=== PATIENT | female | born 1945 | race Caucasian/White ===

== ENCOUNTER 2023-05-19 13:04 | Outpatient (CLI) | payer MEDICARE, SELFPAY ==
[2023-05-19 09:38] LABS: HCT 41.6 % (36.0-46.0); HGB 13.8 g/dL (11.2-15.7); MCH 29.9 pg (27.0-33.0); MCHC 33.2 % (32.0-36.0); MCV 90 fL (80-95); MPV 10.9 fL (8.0-11.0); Platelet Count 218 10^3/uL (130-400); RBC 4.62 10^6/uL (3.93-5.22); RDW 13.1 % (11.7-14.6); RDW-SD 43.3 fL; WBC 5.72 10^3/uL (4.4-10.8)
[2023-05-19 10:01] LABS: Anion Gap 9.9 mmol/L (3-11); BUN 28 mg/dL (7-18); CO2 26.1 mmol/L (21.0-32.0); CREATININE 1.5 mg/dL (0.55-1.02); Calcium 9.9 mg/dL (8.5-10.1); Chloride 104 mmol/L (98-107); Estimated GFR 35.23 (mL/min/1.73m2); Glucose 149 mg/dL (74-106); Potassium 4.4 mmol/L (3.5-5.1); Sodium 140 mmol/L (136-145)
== END 2023-05-19 13:05 | disposition home or self-care (01) ==
LOC: LBO 13:05
PROVIDERS: PCP Family Medicine; Visit Provider Obstetrics & Gynecology Gynecology
DX: R93.89 Abnormal findings on diagnostic imaging of other specified body structures (principal); Z01.818 Encounter for other preprocedural examination; Z01.812 Encounter for preprocedural laboratory examination
CPT/HCPCS: 36415; 80048; 85027; 86850; 86900; 86901

== ENCOUNTER 2023-05-21 06:01 | Day surgery (SDC) | payer MEDICARE, SELFPAY ==
[2023-05-21] VITALS (8 sets, daily range): BP systolic 86–131; BP diastolic 56–99; PULSE 49–76; RESP 14–20; TEMP 36.1–36.5; O2SAT 90–98; BMI 32.9
--- NOTE | 2023-05-21 06:29 | W.ANESPRE ---
General Info Date of Service Date Performed: 05/21/23 Height: 5 ft Weight: 76.5 kg Body Mass Index (BMI): 32.9 Surgical Procedure: Operation Date: 05/21/23 07:40 Proposed Procedure Side Surgeon p Dilation & Curettage with Hysteroscopy Sofia Larose MD Meds Allergies and Home Medications Allergies Allergy/AdvReac Type Severity Reaction Status Date / Time diphenhydramine Allergy Verified 05/21/23 06:30 [From Benadryl] Sulfa (Sulfonamide Allergy Verified 05/21/23 06:30 Antibiotics) Home Medication Medication Instructions Recorded cyanocobalamin (vitamin B-12) 1,000 mcg PO BID 03/12/23 1,000 mcg tablet (Vitamin B-12) fluticasone propionate 50 2 spray intranasal DAILY 03/12/23 mcg/actuation nasal spray,suspension (Allergy Relief (fluticasone)) lisinopril 5 mg tablet 5 mg PO DAILY 03/12/23 omeprazole 20 mg tablet,delayed 20 mg PO DAILY 03/12/23 release rosuvastatin 5 mg tablet 5 mg PO DAILY 03/12/23 metformin 500 mg tablet 500 mg PO DAILY 05/19/23 Current Visit Medications: Current Medications Generic Name Dose Route Start Last Admin Trade Name Freq PRN Reason Stop Dose Admin Ringer's Solution 1,000 mls @ 125 mls/hr 05/21/23 06:00 IV 05/21/23 16:00 INFUSION ADRIEN IV Miscellaneous Supplies 1 each 05/21/23 06:00 Iv Access IV 05/21/23 23:59 DIRECTED ADRIEN Sodium Chloride 0 ml 05/21/23 06:00 Normal Saline Flush 10 Ml Syr IV 05/21/23 23:59 PRN PRN Sodium Chloride 0 ml 05/21/23 06:00 Normal Saline 10 Ml Vial IJ 05/21/23 23:59 DIRECTED PRN Sterile Water 0 ml 05/21/23 06:00 Water,Injection,Sterile 10 Ml Vial IJ 05/21/23 23:59 DIRECTED PRN PFSH Active Problems Active Problems: Problem Status Onset Code Postmenopausal Z78.0 Thickened endometrium R93.89 Essential hypertension I10 Gallstones K80.20 CKD (chronic kidney disease) N18.9 Type 2 diabetes mellitus with hyperglycemia, without long-term current use of insulin E11.65 Kidney mass N28.89 Hypercholesterolemia E78.00 Elevated blood sugar R73.9 Seasonal allergic rhinitis J30.2 GERD without esophagitis K21.9 Surgical History Surgical History (Updated 05/21/23 @ 06:30 by Verito Robison RN) Hx of tubal ligation pt reports procedure done in 1985 Tobacco Smoking/Tobacco Use Status: Never Alcohol Alcohol Intake: never Substance Use Substance use: Never Substance use type: does not use Vital Signs and Lab Results Vital Signs Most Recent Vital Signs in EMR: Most Recent Vital Signs Temp Pulse Resp BP Pulse Ox 36.5 C 76 16 130/87 95 05/21/23 06:23 05/21/23 06:23 05/21/23 06:23 05/21/23 06:23 05/21/23 06:23 Lab Results Blood Type / Crossmatch: Patient ABO/Rh A Positive 05/19/23 Antibody Screen NEGATIVE 05/19/23 Complete Blood Count: White Blood Count 5.72 10^3/uL (4.4-10.8) 05/19/23 09:29 Red Blood Count 4.62 10^6/uL (3.93-5.22) 05/19/23 09:29 Hemoglobin 13.8 g/dL (11.2-15.7) 05/19/23 09:29 Hematocrit 41.6 % (36.0-46.0) 05/19/23 09:29 Platelet Count 218 10^3/uL (130-400) 05/19/23 09:29 Complete Metabolic Panel: Sodium 140 mmol/L (136-145) 05/19/23 09:29 Potassium 4.4 mmol/L (3.5-5.1) 05/19/23 09:29 Chloride 104 mmol/L (98-107) 05/19/23 09:29 Carbon Dioxide 26.1 mmol/L (21.0-32.0) 05/19/23 09:29 BUN 28 mg/dL (7-18) H 05/19/23 09:29 Creatinine 1.5 mg/dL (0.55-1.02) H 05/19/23 09:29 Est GFR (CKD-EPI 2020) 35.23 (mL/min/1.73m2) 05/19/23 09:29 Calcium 9.9 mg/dL (8.5-10.1) 05/19/23 09:29 Glucose 149 mg/dL (74-106) H 05/19/23 09:29 Liver Function Panel: No Data to Display Coagulation Panel: No Data to Display Cardiac Panel: No Data to Display Arterial Blood Gas: No Data to Display Venous Blood Gas: No Data to Display Pancreas Panel: No Data to Display Thyroid Panel: No Data to Display Infectious Disease: No Data to Display Blood Cultures: No Data to Display Toxicology Panel: No Data to Display Imaging and Studies Imaging and Studies Study information below may be from another EMR and interpreted by another provider. Please see original notes in EMR for more complete details. Echocardiogram Summary: Date of study: 03/05/2018 Transthoracic Echocardiography M-mode, complete 2D, complete spectral Doppler, and color Doppler *STUDY CONCLUSIONS* Summary: 1. Left ventricle: The cavity size was normal. The estimated ejection fraction was 50%. 2. Mitral valve: There was mild regurgitation. 3. Right ventricle: The cavity size was normal. Wall thickness was normal. Systolic function was normal. 4. Atrial septum: No defect or patent foramen ovale was identified. 5. Pulmonary arteries: Pulmonary systolic pressure was in the range of 30mm Hg to 40mm Hg. 6. Inferior vena cava: The vessel was patent and normal in size. The respirophasic diameter changes were in the normal range (greater than or equal to 50%), consistent with normal central venous pressure. Anesthesia Assessment and Plan Anesthesia History Personal History: No History of Anesthesia Complications Family History: No Family History of Anesthesia Complications Exercise Tolerance Exercise Tolerance: Metabolic Equivalents>4 Pertinent Negatives Pertinent Negatives: No Symptoms of GERD, No Major Cardiovascular Symptoms or Complaints and No Major Pulmonary Symptoms or Complaints Cardiac & Pulmonary Exam Cardiac Exam: Normal S1/S2 Heart Sounds Pulmonary Exam: Clear Bilateral Breath Sounds Implantable Cardiac Device Does patient have a Pacemaker or an ICD?: No Airway Exam Known Difficult Airway: No Mallampati Class: 2 Mouth Opening: Normal (> 3cm) Thyromental Distance: Greater than 3 cm Neck Range of Motion: Full ROM Neck Circumference: Normal Teeth Condition: Normal Dentition ASA Classification ASA Score: ASA 2 Emergency Case?: No NPO Status NPO Status: NPO Clears >2 hours, Solids >8 hours Anesthesia Plan Resuscitation Status: Full Code Anesthesia Technique: General Anesthesia Airway Planned: Natural Airway Monitors Used: Standard Monitors
[2023-05-21] MEDS: Lactated Ringers 1,000 ML 125 ML IV (06:53)
--- NOTE | 2023-05-21 08:15 | ENDOMET_PTH ---
PATIENT: Ashia Arora LOC: [facility] U#:[id number] AGE/SX: 78/F ROOM: RE05/21/[address]: Sofia Larose : 1945 BED: DIS: 05/21/2023 SPEC #: [id number] RECD: 05/21/23 12:54 STATUS: ANUPAMA REChandni #: [id number] ALLISON: 05/21/23 08:[address]: Sofia Larose DEPT: Surgical Specimen RECD BY: Renetta Martinez ENTERED: 05/21/23 12:55 SP TYPE: Endomet OTHR DR: Pamela Lei V Tissues: 1 - ENDOMETRIUM BX/CURRETTE 2 - ENDOMETRIUM BX/CURRETTE Procedures: GROSS AND MICRO LEVEL 4 Comments: [id number]
--- NOTE | 2023-05-21 08:40 | W.PM.OP ---
Date of service: 05/21/23 Time of Service: 08:40 Operative Note Operative Note DATE OF PROCEDURE: 05/21/23 PRE-OP DIAGNOSIS: Thickened endometrial stripe POST-OP DIAGNOSIS: same PROCEDURE: Hysteroscopy and myosure resection of endometrial polyps SURGEON: Alexandrea Larose ANESTHESIA TYPE: General:No Airway Refer to Anesthesia Record ESTIMATED BLOOD LOSS: 5 PATHOLOGY: other (endometrial curretings.) COMPLICATIONS: None Patient was transported to: PACU Patient's condition: stable Findings: 3 fundal and one lower uterine segement endometrial polyps. Fluid deficit 800cc. There was a copious amount of normal saline that had spilled onto the floor of the OR. Procedure Description: Patient was brought to the operating room where she is placed in the dorsal supine position and monitored anesthesia care was administered. SCDs were placed. No antibiotics were required. A surgical timeout was performed. She was prepped and draped in the usual sterile fashion. A bivalve speculum is placed into the vagina and the anterior lip of the cervix was infiltrated with 0.25% Marcaine without epinephrine. Single-tooth tenaculum was used to grasp the anterior lip of the cervix and a paracervical block was performed with 0.25% Marcaine without epinephrine with 5 cc injected into the 4 and 8:00 paracervical spaces respectively. The uterine cavity was sounded to 10cm. Then sequentially dilated to a maximum of 8 Hegar and a hysteroscope was introduced into the uterine cavity with normal saline as the distention medium with the Myosure fluid monitoring device. The cavity was inspected and appeared smooth walled with the only intracavity lesions benign appearing polyps. The Myosure device was then inserted into the introducer and under direct visualization three of the fundal polyps were resected to their base. No bleeding from the resection site. A Banjo currette was then used to currette all four quadrants of the uterus with minimal tissue returned. A final inspection of the uterine cavity showed it to be intact. The hysteroscope was removed from the uterine cavity and the tenaculum was removed from the anterior lip of the cervix. The tenaculum site was hemostatic. All instruments removed from the patient's vagina. She was placed in the dorsal supine position, awakened and transported to recovery area in stable condition. All sponge lap and needle counts are correct x2.
--- NOTE | 2023-05-21 09:00 | W.ANESPOSTOP ---
Postoperative Evaluation Date, Time and Location Date Performed: 05/21/23 Time Performed: 08:55 Patient Location: PACU Vital Signs Most Recent Imported Vital Signs: Most Recent Vital Signs Temp Pulse Resp BP Pulse Ox 36.4 C L 52 L 16 114/64 98 05/21/23 08:43 05/21/23 08:53 05/21/23 08:53 05/21/23 08:53 05/21/23 08:53 Pain Score Most Recent Pain Score: Most Recent Pain Score Pain Level 0 05/21/23 08:53 Assessment Mental Status: Awake (Alert & Oriented to Patient Baseline) Airway and Respiratory Function: Patent airway with normal (patient baseline) respiratory exam Cardiovascular Function: Hemodynamically Stable Hydration Status: Adequately Hydrated Nausea & Vomiting: No Nausea or Vomiting Pain: Pt. Denies Any Pain Peripheral Nerve Block: Patient did not receive a nerve block
--- NOTE | 2023-05-21 09:06 | PDOC.DSDIS_ITS ---
Date of service: 05/21/23 Time of Service: 09:06 Discharge Plan Disposition Patient Disposition: Home Condition: Good Discharge Details Reason For Visit: hysteroscopy and endometrial curretings Attending Provider: Sofia Larose Primary Care Provider: Pamela Lei V Home Meds and New Rx's Prescriptions: No Action fluticasone propionate [Allergy Relief (fluticasone)] 50 mcg/actuation spray,suspension 2 spray intranasal DAILY Rx Instructions: administer into each nostril lisinopril 5 mg tablet 5 mg PO DAILY omeprazole 20 mg tablet,delayed release (DR/EC) 20 mg PO DAILY rosuvastatin 5 mg tablet 5 mg PO DAILY cyanocobalamin (vitamin B-12) [Vitamin B-12] 1,000 mcg tablet 1,000 mcg PO BID metformin 500 mg tablet 500 mg PO DAILY Rx Instructions: take with meals Discharge Instructions Additional Instructions: You may use Acetaminophen and Ibuprofen for pelvic pain or uterine cramping. Please make an appointment for a telehealth appointment in 2 weeks, we will discuss the pathology results at that time. Stand Alone Forms: Anesthesia Discharge Inst., DSU Post [employer] Surgery, [place] (DSU) Activity:: Activity as Tolerated Diet:: As Tolerated Discharge Orders Discharge Orders: Discharge Order (Routine); Ordered 05/21/23 Ordered By: Sofia Larose
== END 2023-05-21 10:07 | disposition home or self-care (01) ==
PROVIDERS: PCP Family Medicine; Visit Provider Obstetrics & Gynecology Gynecology
PROC: 0UDB8ZZ Extraction of Endometrium, Via Natural or Artificial Opening Endoscopic (ICD-10-PCS; CPT 58558; principal; 2023-05-21 07:30)
DX: R93.89 Abnormal findings on diagnostic imaging of other specified body structures (principal); N84.0 Polyp of corpus uteri; E11.65 Type 2 diabetes mellitus with hyperglycemia; Z79.84 Long term (current) use of oral hypoglycemic drugs; E11.22 Type 2 diabetes mellitus with diabetic chronic kidney disease; N18.9 Chronic kidney disease, unspecified
CPT/HCPCS: 58558; 88305; J1100; J2405